=== PATIENT | female | born 1995 | race Two or more races ===

== ENCOUNTER 2022-07-10 08:49 | Outpatient (CLI) | payer OTHER, SELFPAY ==
--- NOTE | 2022-07-10 08:15 | CRLHL7_ITS ---
For Patients: As a result of the Cures Act, medical imaging exams and procedure reports are released immediately into your electronic medical record. You may view this report before your referring provider. If you have questions, please contact your health care provider. INDICATION: First trimester scan, establish dates. COMPARISON: None. TECHNIQUE: Real-time kemp-scale imaging of the pelvis was performed. FINDINGS: Sonographic imaging demonstrates a single living intrauterine gestation. The embryo demonstrates a regular cardiac rate measuring 168 beats per minute. The embryo`s crown-rump length measurement of 1.6 cm corresponds to a gestational age of 8 weeks 0 days with a sonographic due date of 02/19/2023. There is a normal-appearing yolk sac. There are no gross abnormalities noted within the embryo at this early state of development. The gestational sac has a normal appearance. There is a 0.6 x 0.5 x 0.3 cm perigestational hemorrhage. The amount of fluid within the sac appears appropriate for gestational age. The cervix is closed. An elongated cervical nabothian cyst is present measuring 11 x 7 x 26 millimeters. A smaller cervical nabothian cyst is present measuring 8 x 5 x 4 millimeters. The ovaries are of normal size. Corpus luteal cyst left ovary. There are no suspicious fluid collections noted in the cul-de-sac. IMPRESSION: Single living intrauterine with sonographic gestational age 8 weeks 0 days and a sonographic due date 02/19/2023. Small inferior subchorionic hemorrhage measuring 6 x 5 x 3 millimeters. Cervical nabothian cysts. Dictated by Maciej Ulrich MD @ 07/10/2022 11:15:28 AM (Electronically Signed)
== END 2022-07-10 08:50 | disposition home or self-care (01) ==
LOC: US 08:50
PROVIDERS: Visit Provider Registered Nurse
DX: Z34.91 Encounter for supervision of normal pregnancy, unspecified, first trimester (principal); Z3A.08 8 weeks gestation of pregnancy
CPT/HCPCS: 76817

== ENCOUNTER 2022-07-10 10:30 | Outpatient (CLI) | payer OTHER, SELFPAY ==
[2022-07-10 13:05] LABS: Amphetamine Screen Urine Negative (Negative); Barbiturate Screen Urine Negative (Negative); Benzodiazepines Screen Urine Negative (Negative); Cannabinoid Screen Urine Negative (Negative); Cocaine Screen Urine Negative (Negative); Methadone Screen Urine Negative (Negative); Methamphetamines Screen Urine Negative (Negative); Opiate Screen Urine Negative (Negative); Oxycodone Screen Urine Negative (Negative); Phencyclidine Screen Urine Negative (Negative); Tricyclic Antidepressant Urine Negative (Negative)
[2022-07-10 14:28] LABS: HIV 1/2/P24 Combo Screen* Negative (Negative)
[2022-07-10 14:37] LABS: Hepatitis C Virus Antibody* Negative (Negative)
[2022-07-10 15:48] LABS: Hepatitis B Surface Antigen* Negative (Negative)
[2022-07-10 16:14] LABS: Free T4 Free Thyroxine* 0.69 ng/dL (0.70-1.85)
[2022-07-10 17:21] LABS: Chlamydia DNA Amplified* NOT DETECTED (No Detected); GC DNA Amplified* NOT DETECTED (No Detected)
[2022-07-11 23:16] LABS: Rapid Plasma Reagin (RPR) Non Reactive (Non Reactive)
[2022-07-12 07:28] LABS: Rubella Antibody IgG 7.9 IU/mL
== END 2022-07-10 10:31 | disposition home or self-care (01) ==
PROVIDERS: Visit Provider Registered Nurse
DX: Z34.91 Encounter for supervision of normal pregnancy, unspecified, first trimester (principal); F19.91 Other psychoactive substance use, unspecified, in remission; E03.9 Hypothyroidism, unspecified; Z3A.08 8 weeks gestation of pregnancy
CPT/HCPCS: 80306; 84439; 84443; 86592; 86703; 86762; 86787; 86803; 86850; 86900; 86901; 87086; 87340; 87491; 87591

== ENCOUNTER 2022-09-04 11:53 | Outpatient (CLI) | payer OTHER, SELFPAY | END 2022-09-04 11:54 | disposition home or self-care (01) | PROVIDERS: Visit Provider Registered Nurse | DX: E03.9 Hypothyroidism, unspecified (principal) | CPT/HCPCS: 84439; 84443 ==

== ENCOUNTER 2022-10-02 09:42 | Outpatient (CLI) | payer OTHER, SELFPAY ==
--- NOTE | 2022-10-02 09:45 | CRLHL7_ITS ---
For Patients: As a result of the Century Cures Act, medical imaging exams and procedure reports are released immediately into your electronic medical record. You may view this report before your referring provider. If you have questions, please contact your health care provider. INDICATION: Evaluate anatomy. COMPARISON: 07/10/2022 TECHNIQUE: Real time kemp scale imaging of the fetus was performed as well as color Doppler analysis of the umbilical vessels. FINDINGS: Sonographic imaging demonstrates a single living intrauterine gestation. Fetus demonstrates a regular cardiac rate of 155 beats per minute. Fetus has a vertex position. The placenta lies posteriorly without evidence of placenta previa. The edge of the placenta is located 3.1 cm from the internal cervical os. Amniotic fluid volume appears normal. Single deepest vertical pocket: 3.8 cm. The cervix is closed and measures 4.8 cm in length. The composite ultrasound gestational age is calculated at 20 weeks 3 days with an estimated sonographic due date of 02/16/2023. The estimated weight is 358 grams which lies at the 49th %. The following biometric measurements were obtained: Biparietal diameter: 4.6 cm/20 weeks 0 days 33rd% Head circumference: 17.9 cm/20 weeks 2 days 37th% Abdominal circumference: 15.0 cm/20 weeks 2 days 37th% Femur length: 3.5 cm/20 weeks 6 days 59th% The HC/AC ratio measures: 1.19 range (1.07-1.25) On anatomic survey, there is a normal appearance of the cerebral ventricles, cavum septi pellucidi, cisterna magna and cerebellum. The nose, lips, and facial profile appear normal. The cervical, thoracic and lumbar spine are well visualized and appear normal. There is a normal four-chamber heart view and the left and right ventricular outflow tracts appear normal. The diaphragm and stomach appear normal. The kidneys and bladder also appear normal. There is a normal three-vessel cord and eccentric cord insertion site. The four extremities appear normal. IMPRESSION: Concordance of clinical and sonographic dating. No intrinsic abnormalities noted on anatomic survey. Dictated by Maciej Ulrich MD @ 10/02/2022 11:06:16 AM (Electronically Signed)
== END 2022-10-02 09:43 | disposition home or self-care (01) ==
LOC: US 09:43
PROVIDERS: Visit Provider Registered Nurse
DX: Z34.92 Encounter for supervision of normal pregnancy, unspecified, second trimester (principal); Z3A.20 20 weeks gestation of pregnancy
CPT/HCPCS: 76805

== ENCOUNTER 2022-10-02 11:03 | Outpatient (CLI) | payer OTHER, SELFPAY | END 2022-10-02 11:04 | disposition home or self-care (01) | LOC: NFLDREF 11:04 | PROVIDERS: Visit Provider Obstetrics & Gynecology | DX: E03.9 Hypothyroidism, unspecified (principal) | CPT/HCPCS: 84443 ==

== ENCOUNTER 2022-12-24 15:45 | Outpatient (CLI) | payer OTHER, SELFPAY | END 2022-12-24 15:46 | disposition home or self-care (01) | PROVIDERS: Visit Provider Obstetrics & Gynecology | DX: Z34.93 Encounter for supervision of normal pregnancy, unspecified, third trimester (principal); E03.9 Hypothyroidism, unspecified | CPT/HCPCS: 84439; 84443 ==

== ENCOUNTER 2023-01-21 14:23 | Outpatient (CLI) | payer OTHER, SELFPAY | END 2023-01-21 14:24 | disposition home or self-care (01) | LOC: NFLDREF 01-23 07:37 | PROVIDERS: Visit Provider Obstetrics & Gynecology | DX: Z36.85 Encounter for antenatal screening for Streptococcus B (principal); Z3A.36 36 weeks gestation of pregnancy | CPT/HCPCS: 87081; 87653 ==

== ENCOUNTER 2023-01-24 12:45 | Outpatient (CLI) | payer OTHER, SELFPAY ==
[2023-01-24 13:13] VITALS: BP 121/59; PULSE 98; PULSE 99; TEMP 37.1; O2SAT 96
--- NOTE | 2023-01-24 14:15 | PC.OBNST ---
NST Note NST Note Start: 01/24/23 12:55 Freq: ONCE Status: Active Protocol: Document 01/24/23 14:02 AAP (Rec: 01/24/23 14:15 AAP [id number]) NST Note 2 Para (# of births) 0 EDC 02/16/23 Gestational Age In Weeks & Days 36 Weeks & 5 Days Patient Presented with Complaint(s) of Decreased movement,Other Other Complaints Edema to bilateral feet and hands Reactive Yes Appropriate for Gestational Age Yes RN Regine Stein RN Date 01/24/23 Reactive Yes Appropriate for Gestational Age Yes RN Dr. Gigi MD Date 01/24/23 OB NST charge Yes Complete NST Note via Write Note Yes The provider's electronic signature indicates the NST is reactive/appropriate for gestational age. *Note to provider: If an addendum is required, open the patient's chart and click on the note under the Nurse/Allied Health tab.
== END 2023-01-24 14:02 | disposition home or self-care (01) ==
LOC: OB OUT 12:46 → OB 12:46
PROVIDERS: Visit Provider Obstetrics & Gynecology
DX: O36.8130 Decreased fetal movements, third trimester, not applicable or unspecified (principal); Z3A.36 36 weeks gestation of pregnancy
CPT/HCPCS: 59025; 99213

== ENCOUNTER 2023-01-29 15:52 | Outpatient (CLI) | payer OTHER, SELFPAY ==
--- NOTE | 2023-01-29 16:00 | CRLHL7_ITS ---
For Patients: As a result of the Century Cures Act, medical imaging exams and procedure reports are released immediately into your electronic medical record. You may view this report before your referring provider. If you have questions, please contact your health care provider. INDICATION: Measuring large for dates. COMPARISON: OB ultrasound 10/02/2022. TECHNIQUE: Ultrasound OB pelvis with real time kemp scale imaging and color Doppler analysis. FINDINGS: Sonographic imaging demonstrates a single living intrauterine gestation. The fetus has a regular cardiac rate of 127 beats per minute. The fetus has a cephalic orientation. The placenta lies posteriorly. Single deepest pocket measures 4.8 cm. The composite ultrasound gestational age is calculated at 37 weeks 4 days with an estimated sonographic due date of 02/15/2023. The estimated weight is 3365 grams which lies at the 73rd percentile. The following biometric measurements were obtained: Biparietal diameter: 9.11 cm (37 weeks 0 days) (56th percentile) Head circumference: 32.49 cm (36 weeks 6 days) (15th percentile) Abdominal circumference: 34.54 cm (38 weeks 3 days) (88th percentile) Femur length: 7.45 cm (38 weeks 1 day) (68th percentile) The HC/AC ratio measures: 0.94 (range 0.91-1.05) IMPRESSION: 1. Single living intrauterine gestation in cephalic position with heart rate 127 beats per minute. 2. Ultrasound gestational age 37 weeks 4 days with sonographic due date 02/15/2023. This is concordant with the clinical gestational age of 37 weeks 3 days. 3. Estimated weight lies at the 73rd percentile. Dictated by Rebecca Harris MD @ 01/29/2023 11:06:02 PM (Electronically Signed)
== END 2023-01-29 15:53 | disposition home or self-care (01) ==
LOC: US 15:53
PROVIDERS: Visit Provider Obstetrics & Gynecology
DX: O36.63X0 Maternal care for excessive fetal growth, third trimester, not applicable or unspecified (principal); Z3A.37 37 weeks gestation of pregnancy
CPT/HCPCS: 76816

== ENCOUNTER 2023-01-30 21:57 | Inpatient (IN) | payer OTHER, SELFPAY ==
[2023-01-30] VITALS (11 sets, daily range): BP systolic 105–142; BP diastolic 53–80; PULSE 72–117; O2SAT 97–100; BMI 38.8
[2023-01-30] MEDS: LACTATED RINGERS 1000 ML 1,000 ML 1200 ML IV (22:50)
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
[2023-01-30] MEDS: fentaNYL 100 MCG/2 ML inj 20 MCG INTRATHECA (23:23)
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
[2023-01-31] VITALS (13 sets, daily range): BP systolic 110–152; BP diastolic 57–81; PULSE 83–113; RESP 1–18; TEMP 36.8–37.1; O2SAT 96–98
[2023-01-31] MEDS: miSOPROStoL 800 MCG/4 TABLET PR (02:04)
[2023-01-31] MEDS: METHYLERGONOVINE MALEATE 0.2 MG/ML INJ IM (02:06)
[2023-01-31] MEDS: TRANEXAMIC ACID 100 MG/ML INJ 1000 MG IV (02:07)
--- NOTE | 2023-01-31 02:37 | W.PM.OBVAGDE ---
OB Procedure Vag Delivery Mother Details Mother Details: The patient is a 28 year-old, 2, Para 0, admitted on 01/30/23 at 37 4/7 weeks gestation, after SROM and in labor. : 2 Para: 1 Weeks Gestation: 37.5 Admission Date: 01/30/23 Additional Details Amniotic Membrane Status: SROM Amniotic Membrane Rupture Date: 01/30/23 Amniotic Membrane Rupture Time: 20:30 Amniotic Membrane Fluid Description: Clear Analgesia/Anesthesia Type: Intrathecal Waterbirth: No Pitcoin: No Labor Onset: 21:00 Complete: 23:30 Pushin:46 Heart: heart tones during second stage were category 2, variable decelerations with pushing with good recovery and moderate variability between contractions. Delivery Details Delivery Date: 01/31/23 Delivery Time: 01:56 Route of delivery: Infant Gender: Male Viability: Alive; Heart Rate Present Position at Delivery: OA Delivery Details: Delivered over intact perineum via spontaneous vaginal delivery. Head delivered and with traction there was slow delivery of anterior shoulder January position obtained and baby delivered immediately after. No shoulder dystocia. Infant was placed on maternal abdomen. Nose and mouth were bulb suctioned. Baby was seen stunned with poor tone so recommendation was given to clamp and cut the cord and take baby to the warmer, after about 30 seconds of delayed cord clamping. After stimulation baby responded well and was brought back to mom soon.? Infant weight pending. 1 Minute Interval Total Score: 4 5 Minute Interval Total Score: 8 Additional Details Shoulder Dystocia: No Placenta Delivery Time: 02:02 Placental Delivery Description: Spontaneous Delivery repair: Vicryl Procedure Done: Global Blood Loss: 550 (Uterine atony, managed with IV Oxytocin 30 units, 800mcg of rectal misoprostol and 1 dose of Methergine. ) Laceration: Perineal - 3rd Degree (3a, very superficial disruption of the external anal sphincter, edges identified and these were approximated with Vicryl 3-0 in an interrupted manner, great sphincter tone noted, afterwards the repaire continued as a second degree repair utilizing Vicryl 3-0,one dose of Ancef given.) Episiotomy Description: None Blood Loss Measurement Type: QBL Bakri Used: No Sponge/Need Count Correct: Yes Cord Vessel Description: 3 Vessels Event Summary Status: Mother and were stable after delivery. Disposition: floor
[2023-01-31] MEDS: OXYTOCIN 30 unit/500 ML in NS 30 UNIT/500 ML BAG 300 UNIT IVPB (02:44)
[2023-01-31] MEDS: LIDOCAINE 1 % PF 30 ML INJECTION (02:45)
[2023-01-31] MEDS: CEFAZOLIN 2 GM INJ IVP (03:14)
[2023-01-31] MEDS: LACTATED RINGERS 1000 ML 1,000 ML 300 ML IV (08:01)
[2023-01-31] MEDS: DOCUSATE SODIUM 100 MG CAPSULE PO (08:39)
[2023-01-31] MEDS: ACETAMINOPHEN 500 MG TABLET 1000 MG PO (08:39)
[2023-01-31] MEDS: MEASLES,MUMPS,RUBELLA VACC/PF 1 DOSE INJ 1 EACH SUBCUT (11:30)
[2023-01-31] MEDS: IBUPROFEN 600 MG TABLET PO ×2 (11:39→19:38)
[2023-02-01] VITALS: BP 122/82; PULSE 84; RESP 16; TEMP 36.6; O2SAT 95
[2023-02-01] MEDS: ACETAMINOPHEN 500 MG TABLET 1000 MG PO (00:18)
[2023-02-01] MEDS: IBUPROFEN 600 MG TABLET PO (04:07)
[2023-02-01 07:04] LABS: Hemoglobin* 10.4 gm/dL (12.0-16.0)
[2023-02-01] MEDS: DOCUSATE SODIUM 100 MG CAPSULE PO (08:17)
[2023-02-01 08:30] VITALS: BP 117/79; PULSE 76; RESP 16; TEMP 36.7; O2SAT 98
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
== END 2023-02-01 12:13 | disposition home or self-care (01) | DRG 560 ==
LOC: OB OUT 21:57 → OB 21:57
PROVIDERS: Admitting Provider Obstetrics & Gynecology; Visit Provider Obstetrics & Gynecology
DX: O42.02 Full-term premature rupture of membranes, onset of labor within 24 hours of rupture (principal); O70.21 Third degree perineal laceration during delivery, IIIa; O62.2 Other uterine inertia; O90.81 Anemia of the puerperium; D62 Acute posthemorrhagic anemia; O99.334 Smoking (tobacco) complicating childbirth; F17.210 Nicotine dependence, cigarettes, uncomplicated; O99.344 Other mental disorders complicating childbirth; F32.A Depression, unspecified; F41.9 Anxiety disorder, unspecified; Z62.810 Personal history of physical and sexual abuse in childhood; F98.8 Other specified behavioral and emotional disorders with onset usually occurring in childhood and adolescence; F10.21 Alcohol dependence, in remission; F11.21 Opioid dependence, in remission; F15.11 Other stimulant abuse, in remission; F12.11 Cannabis abuse, in remission; Z3A.37 37 weeks gestation of pregnancy; Z37.0 Single live birth
CPT/HCPCS: 01967; 36415; 85018; 85025; 86850; 86900; 86901; A9270; J0690; J2001; J2210; J2371; J3010; J7120

== ENCOUNTER 2023-03-14 10:56 | Outpatient (CLI) | payer OTHER, SELFPAY | END 2023-03-14 10:57 | disposition home or self-care (01) | LOC: NFLDREF 10:56 | PROVIDERS: Visit Provider Registered Nurse | DX: Z39.2 Encounter for routine postpartum follow-up (principal); E03.9 Hypothyroidism, unspecified | CPT/HCPCS: 84439; 84443 ==

== ENCOUNTER 2024-05-28 11:26 | Outpatient (CLI) | payer MEDICAID, SELFPAY ==
[2024-05-29 14:25] LABS: Strep B DNA Probe POSITIVE (Negative)
[2024-05-29 14:44] LABS: Strep B Susceptibility Needed? No
== END 2024-05-28 11:27 | disposition home or self-care (01) ==
PROVIDERS: Visit Provider Obstetrics & Gynecology
DX: Z34.93 Encounter for supervision of normal pregnancy, unspecified, third trimester (principal); Z3A.36 36 weeks gestation of pregnancy
CPT/HCPCS: 87081; 87653

== ENCOUNTER 2024-06-03 10:59 | Outpatient (CLI) | payer MEDICAID, SELFPAY ==
--- NOTE | 2024-06-03 11:15 | CRLHL7_ITS ---
For Patients: As a result of the Century Cures Act, medical imaging exams and procedure reports are released immediately into your electronic medical record. You may view this report before your referring provider. If you have questions, please contact your health care provider. HISTORY: Size greater than dates COMPARISON: None available of this gestation. TECHNIQUE: Ultrasound examination of the is performed with transabdominal technique. FINDINGS: A single intrauterine gestation is seen in cephalic presentation with regular cardiac activity at 141 beats per minute. The placenta is anterior and is free of the cervical os. The placental grade is 2 and the amniotic fluid volume is normal. Single deepest vertical pocket: Normal at 5.8 cm. BPD: 9.0 cm 36 weeks 4 days HC: 33.1 cm 37 weeks 4 days AC: 34.5 cm 38 weeks 3 days. 92nd percentile FL: 6.7 cm 34 weeks 5 days The estimated age by ultrasound is 36 weeks 6 days, with an estimated date of delivery of 06/25/2024. This correlates well with the clinical age of 37 weeks 0 days. The FL/AC ratio of 19.5 is below bottom normal 20.0. The HC/AC ratio is normal. The estimated weight of 3200 grams is at the 64th percentile based on the clinical dates. IMPRESSION: 1. Single intrauterine gestation in cephalic presentation with regular cardiac activity. 2. Estimated gestational age is 36 weeks 4 days. 3. The estimated weight of 3200 grams is at the 64th percentile based on the clinical dates. 4. Abdominal circumference at the 92nd percentile Dictated by Aung Almonte MD @ 06/04/2024 9:23:25 PM (Electronically Signed)
== END 2024-06-03 11:00 | disposition home or self-care (01) ==
LOC: US 11:00
PROVIDERS: Visit Provider Obstetrics & Gynecology
DX: O36.63X0 Maternal care for excessive fetal growth, third trimester, not applicable or unspecified (principal); Z3A.37 37 weeks gestation of pregnancy
CPT/HCPCS: 76816

== ENCOUNTER 2024-06-05 19:40 | Inpatient (IN) | payer MEDICAID, SELFPAY ==
[2024-06-05] VITALS (7 sets, daily range): BP systolic 121–146; BP diastolic 60–78; PULSE 92–107; TEMP 36.6–36.7; O2SAT 98; BMI 42.3
[2024-06-05 20:04] LABS: Basophils Absolute Auto 0.01 K/uL (0.00-0.30); Basophils Percent Auto 0.1 % (0.0-3.0); Eosinophils Percent Auto 1.1 % (0.0-7.0); Hematocrit 35.4 % (33.0-51.0); Hemoglobin* 11.7 gm/dL (12.0-16.0); Immature Granulocytes Abs Auto 0.05 K/uL (0.00-0.30); Immature Granulocytes Pct Auto 0.5 %; Lymphocytes Percent Auto 18.6 % (20-44); Mean Corpuscular HGB Conc 33 gm/dL (32-36); Mean Corpuscular Hemoglobin 29 pg (26-34); Mean Corpuscular Volume 86 fL (80-100); Neutrophils Absolute Auto 6.33 K/uL (1.7-7.0); Neutrophils Percent Auto 68.7 % (42.0-72.0); Platelet Count* 203 K/uL (140-440); RDW Coefficient of Variation % 14.6 % (11.5-15.5); White Blood Count* 9.21 K/uL (4.50-11.00)
[2024-06-05 20:10] LABS: Slide Review Reflex No
[2024-06-05] MEDS: AMPICILLIN 2 GM in 0.9 % SODIUM CHLORIDE Mini-bag 100 ML IVPB (20:15)
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
[2024-06-05] MEDS: LACTATED RINGERS 1000 ML 1,000 ML 125 ML IV (20:50)
[2024-06-06] VITALS (70 sets, daily range): BP systolic 71–176; BP diastolic 34–92; PULSE 62–114; RESP 14–18; TEMP 36.6–37.1; O2SAT 97–99
[2024-06-06] MEDS: AMPICILLIN 1 GM in 0.9 % SODIUM CHLORIDE Mini-bag 100 ML IVPB ×2 (00:15→04:16)
[2024-06-06] MEDS: LIDOCAINE 2% (PF) 5 ML VIAL EPIDURAL (00:37)
[2024-06-06] MEDS: ROPIVACAINE 0.2 % PF 10 ML INJ 20 MG EPIDURAL (00:37)
[2024-06-06] MEDS: ROPIVACAINE 0.2% 100 ml 100 ML 12 MG EPIDURAL (00:37)
--- NOTE | 2024-06-06 00:54 | PM.ANBPRC ---
PFSH PFSH Medical History Substance abuse ?F19.10 - Other psychoactive substance abuse, uncomplicated (ICD-10) Alcohol abuse ?F10.10 - Alcohol abuse, uncomplicated (ICD-10) Normal spontaneous vaginal delivery ?O80 - Encounter for full-term uncomplicated delivery (ICD-10) Anemia associated with acute blood loss ?D62 - Acute posthemorrhagic anemia (ICD-10) Perineal laceration with delivery, third degree ?O70.20 - Third degree perineal laceration during delivery, unspecified (ICD-10) SROM (spontaneous rupture of membranes) Constipation ?K59.00 - Constipation, unspecified (ICD-10) History of abuse Surgical History History of tonsillectomy ?Z90.89 - Acquired absence of other organs (ICD-10) Social History What is your current living situation?: I presently have a place to live Problems where you live: no known problems In the past 12 months, utilities in danger of being shut off: no In the past 12 mos, have been you worried that your food would run out before you had money to buy more?: never true In the past 12 mos, the food you bought just didn't last and you didn't have money to buy more?: never true Smoking Status: Former smoker How often does anyone, including family, friends and others, physically hurt you: never How often does anyone, including family, friends and others, insult or talk down to you: never How often does anyone, including family, friends and others, threaten you with harm: never How often does anyone, including family, friends and others, scream or curse at you: never Meds Home Medications and Allergies Home Medications ?Medication ?Instructions ?Recorded ?Confirmed ?Type prenat.vits,catarino,[id number] 1 tab PO QDAY 07/10/22 06/05/24 History acetaminophen 500 mg tablet 1,000 mg PO Q6H PRN 09/04/22 06/05/24 History (Tylenol Extra Strength) levothyroxine 112 mcg tablet 112 mcg PO DAILY 05/07/24 06/05/24 History famotidine 20 mg tablet (Pepcid) 20 mg PO QDAY 05/14/24 06/05/24 History Allergies Allergy/AdvReac Type Severity Reaction Status Date / Time No Known Drug Allergies Allergy Verified 06/05/24 23:34 Results Labs Labs: Laboratory Results - last 24 hr 06/05/24 19:54 WBC 9.21 RBC 4.10 Hgb 11.7 L Hct 35.4 MCV 86 MCH 29 MCHC 33 RDW Coeff of Natasha 14.6 Plt Count 203 Neut % (Auto) 68.7 Lymph % (Auto) 18.[address] % (Auto) 11.0 Eos % (Auto) 1.1 Baso % (Auto) 0.1 Neut # (Auto) 6.33 Lymph # (Auto) 1.70 [place] # (Auto) 1.00 H Eos # (Auto) 0.10 Baso # (Auto) 0.01 Abs Immat Gran (auto) 0.05 Imm/Tot Granulo (auto) 0.5 Blood Type A Positive Antibody Screen NEGATIVE Vital Signs Vital Signs: Last Vital Signs Temp 97.9 F 06/05/24 23:00 Pulse 96 06/06/24 00:52 BP 111/53 L 06/06/24 00:52 Pulse Ox 99 06/06/24 00:51 Weight: 111.811 kg Height: 162.56 cm Anesthesia Procedures Epidural Insertion Patient Location: OB Start Time: 00:20 Stop Time: 00:54 Start Date: 06/06/24 Stop Date: 06/06/24 Reason for Block: procedure for pain Patient Position: sitting Performed By: Joe Negrete Preanesthetic Checklist: IV checked, risks and benefits discussed, surgical consent, monitors and equipment checked, pre-op evaluation, timeout performed and anesthesia consent Prep: chlorhexidine gluconate Monitoring: blood pressure monitoring, continuous pulse oximetry and heart rate Approach: midline Vertebral Space: lumbar (1-5) Epidural Technique: FLAQUITA air Needle Type: Tuohy needle Injection Technique: continuous catheter Needle gauge: 17 Needle Length (cm): 10 cm Needle Insertion Depth (cm): 7 Catheter Gauge: 19 Catheter Type: multi-orifice Catheter at skin depth (cm): 13 Test Dose Result: negative and lidocaine 1.5% with epinephrine 1 to 200,000
[2024-06-06] MEDS: PHENYLEPHRINE 100 MCG/ML SYRINGE IVP ×2 (01:25→01:42)
[2024-06-06] MEDS: LACTATED RINGERS 1000 ML 1,000 ML 125 ML IV (02:20)
[2024-06-06] MEDS: ePHEDrine sulfate 5 MG/ML inj 10 MG IVP (02:43)
[2024-06-06] MEDS: OXYTOCIN 30 unit/500 ML in NS 30 UNIT/500 ML BAG 300 UNIT IVPB (05:56)
[2024-06-06] MEDS: LIDOCAINE 1 % PF 30 ML INJECTION (06:04)
[2024-06-06] MEDS: IBUPROFEN 600 MG TABLET PO ×2 (06:21→19:46)
--- NOTE | 2024-06-06 07:11 | W.PM.OBVAGDE ---
OB Procedure Vag Delivery Mother Details Mother Details: The patient is a 29 year-old, 3, Para 2, admitted on 06/05/24 at 37.3 Days gestation in labor for delivery. Patient continued to progress, after epidural placement contractions started to space out and patient intesrted in labor augmentation. Patient had labor augmentation with IV Oxytocin and AROM. : 3 Para: 2 Weeks Gestation: 37.3 Admission Date: 06/05/24 Additional Details Amniotic Membrane Status: AROM Amniotic Membrane Rupture Date: 06/06/24 Amniotic Membrane Rupture Time: 01:25 Amniotic Membrane Fluid Description: Clear Analgesia/Anesthesia Type: Epidural Waterbirth: No Pitcoin: Yes Intrapartal Events: Labor Augmentation Delivery augmentation: rupture of membranes and pitocin Labor Onset: 19:00 Complete: 05:33 Pushin:35 Heart: heart tones during second stage were category 2, deep variable decelerations with uterine contractions, but recovered to a normal baseline and great maternal pushing efforts resulted in a speedy vaginal delivery. Delivery Details Delivery Date: 06/06/24 Delivery Time: 05:55 Route of delivery: Gender: Male Infant Viability: Alive; Heart Rate Present Position at Delivery: OA Delivery Details: Delivered over intact perineum via spontaneous vaginal delivery. was placed on maternal abdomen.? Cord was clamped and cut after a 30-60 second delay. Nose and mouth were bulb suctioned.? weight pending. 1 Minute Interval Total Score: 8 5 Minute Interval Total Score: 8 Additional Details Shoulder Dystocia: No Placenta Delivery Time: 05:59 Placental Delivery Description: Spontaneous Delivery repair: Vicryl Procedure Done: Global Blood Loss: 200 Laceration: Perineal - 2nd Degree Episiotomy Description: None Blood Loss Measurement Type: QBL Bakri Used: No Sponge/Need Count Correct: Yes Cord Vessel Description: 3 Vessels, Nuchal Cord and Reduced Event Summary Status: Mother and infant were stable after delivery. Disposition: floor
[2024-06-06] MEDS: ACETAMINOPHEN 500 MG TABLET 1000 MG PO (11:27)
[2024-06-07] MEDS: IBUPROFEN 600 MG TABLET PO (03:40)
[2024-06-07 03:51] VITALS: BP 114/77; PULSE 84; RESP 18; TEMP 36.5; O2SAT 98
[2024-06-07 06:57] LABS: Hemoglobin* 11.8 gm/dL (12.0-16.0)
--- NOTE | 2024-06-07 08:14 | P.DS_ITS ---
DS: Providers Provider Date Seen: 06/07/24 Date of admission: 06/05/24 19:40 Primary care physician: Not a Local Provider Admitting Clinician: Radha Capps MD Attending Physician on discharge: Altaf STONE APRN Date of Discharge: 06/07/24 DS: Diagnosis Discharge Diagnosis (1) care and examination of lactating mother: Status: Acute (2) Hypothyroidism: Status: Acute (3) ADD (attention deficit disorder): Status: Acute Problem details: Stopped Adderall with positive UPT Exam Narrative: Exam Narrative: GENERAL APPEARANCE:? normal affect, alert, no distress MOOD:? appropriate CHEST:? clear to auscultation HEART:? regular rate and rhythm ABDOMEN:? soft, non-tender the uterine fundus is At Umbilicus, Midline and is appropriate for the stage of recovery. PERINEUM:? mild edema of the perineum, there is a Perineal Laceration,?with minimal edema and no erythema EXTREMITIES:? normal and no edema Const: Vital Signs, click to edit/add: Vital Signs - 24 hr 06/06/24 08:20 06/06/24 13:39 06/06/24 16:04 Temperature 97.8 F 97.8 F Pulse Rate 76 Pulse Rate [Pulse Oximeter] 97 Respiratory Rate 14 18 Blood Pressure 112/56 L Blood Pressure [Le ft Arm] 126/75 107/68 Pulse Oximetry 97 97 Oxygen Delivery Me thod Room Air Room Air 06/06/24 20:43 06/06/24 23:11 06/07/24 03:51 Temperature 98.7 F 97.9 F 97.7 F Pulse Rate Pulse Rate [Pulse Oximeter] 84 98 84 Respiratory Rate 17 18 Blood Pressure Blood Pressure [Le ft Arm] 109/71 131/81 114/77 Pulse Oximetry 97 97 98 Oxygen Delivery Me thod Room Air Room Air Room Air OB - DS: Summary Hospital Course Hospital Course: Discharge Subjective? Rodríguez is a 29 y.o. G 3 P 2011 who was admitted to [facility] for active labor.? She had a NVD that was uncomplicated. The patient feels well.? The pain is well controlled with current medications.? She has no new complaints.? She is breast feeding and reports things are not going well. She is planning to pump and bottle feed. Nursing will help her secure her pump. the patient has done well.? Vitals have been stable.? She has remained afebrile.? Has a good appetite, is tolerating a general diet.? She is voiding without difficulty.? She is passing gas and has not had a bowel movement.? She is ambulating and denies any dizziness.? Has small amount of rubra lochia. She is planning condoms/abstinence for prevention.? ?? Problems: none? ?? plan:? Discharge home with baby.? Follow up in 2 weeks and 6 weeks.? RX sent for 100 mcg levothyroxine, to decrease from 112mcg. , may see if needed? Hgb 11.8. ? Labs WNL or stable with trending? Peripartum Data Infant delivery method: Vaginal Laceration description: Perineal - 2nd Degree Episiotomy description: None complications: none Infant Gender: Male Discharge Plan: Home Status at Discharge Overall status at discharge: patient is progressing back to baseline Time Spent with Patient Time attestation: Total time spent providing and/or coordinating discharge services: Time spent: Less than 30 minutes Discharge Plan Discharge Disposition: Home, Self-Care Date of Admission: 06/05/24 19:40 Attending Provider on Discharge: Lauar Lechuga Primary Care Provider: Provider,Not a Local Condition: Stable Anticipated Discharge Date/Time: 06/07/24 12:00 Discharge Medications: New acetaminophen 500 mg Tablet 1,000 mg PO Q6H PRNQty: 60 0RF docusate sodium 100 mg Capsule 100 mg PO DAILY Qty: 60 0RF ibuprofen 600 mg Tablet 600 mg PO Q6H PRNQty: 60 0RF levothyroxine 100 mcg capsule 100 mcg PO DAILY Qty: 90 2RF Continued prenat.vits,catarino,[id number] Tablet 1 tab PO QDAY Discontinued levothyroxine 112 mcg tablet 112 mcg PO DAILY acetaminophen [Tylenol Extra Strength] 500 mg tablet 1,000 mg PO Q6H PRN famotidine [Pepcid] 20 mg tablet 20 mg PO QDAY Discharge Orders: Discharge Order (Routine); Ordered 06/07/24 Ordered By: Laura Lechuga Patient Education: OB Care, OB Vaginal/Breast Feeding Additional Instructions: Patient verbalized understanding of reviewed discharge instructions.Discharge instructions were reviewed with the patient including signs and symptoms of infection and home going medications Nothing vaginally for 6 weeks: no tampons or intercourse Do not drive while taking narcotic pain medication(s) Off Work or School for 6 weeks Symptoms to report to doctor: * Bleeding that saturates more than one pad per hour * Passing clots larger than the size of a golf ball * Pain not relieved by prescribed medication * Fever above 100.4 degrees Fahrenheit * A foul vaginal odor * Difficulty in emotions, mood, and functions * Thoughts of hurting yourself and/or * Painful, reddened area in your breast * Any drainage, redness, or tenderness in your IV/epidural site * Severe headache that doesn't improve after taking medications * Changes in vision, including temporary loss of vision, blurred vision, and/or light sensitivity * Upper abdominal pain (usually under ribs on the right side) * Decrease in urination or painful, frequent urinating * Chest pain * Shortness of breath * Tenderness or pain with redness and/swelling in the calf(s) of your leg 2-week visit: discuss feeding concerns, review control options and screen for anxiety/depression. 6-week visit for an annual exam. consultation services are available to all mothers and babies for the first year after delivery.? To make an appointment, please call [phone]. For pain control of perineum, breast and pelvic pain, take 600 mg Ibuprofen every 6 hours as needed by mouth or 1000 mg acetaminophen (Tylenol) every 6 hours by mouth as needed. You can alternate these so you are taking something every 3 hours as needed. A heating pad can also be used for your abdomen or breasts. You may also take docusate sodium up to twice daily to soften your stools and help to prevent constipation. You may wean off of it when your stools return to normal.? Activity Level: Activity as Tolerated and No strenuous activity Discharge Diet: Regular Follow Up Appointments: [facility] [Provider Group] Forms: MyHealth Info Instructions
[2024-06-07 08:20] VITALS: BP 109/71; PULSE 86; RESP 16; TEMP 36.3; O2SAT 98
[2024-06-07] MEDS: DOCUSATE SODIUM 100 MG CAPSULE PO (08:29)
--- NOTE | 2024-06-07 11:08 | PM.ANPOST ---
Post Anesthesia Note Post Anesthesia Note Patient seen: Inpatient Respiratory Status: adequate Cardiovascular Status: adequate Mental Status: baseline Pain: adequate Temp: baseline Anesthetic awareness: N/A Complications: none Follow care: none
[2024-06-09 02:44] LABS: Rapid Plasma Reagin (RPR) Non Reactive (Non Reactive)
== END 2024-06-07 11:20 | disposition home or self-care (01) | DRG 807 ==
LOC: OB OUT 19:40 → OB 19:41
PROVIDERS: Admitting Provider Obstetrics & Gynecology; Visit Provider Obstetrics & Gynecology
DX: O99.824 Streptococcus B carrier state complicating childbirth (principal); Z37.0 Single live birth; O76 Abnormality in fetal heart rate and rhythm complicating labor and delivery; O70.1 Second degree perineal laceration during delivery; O99.284 Endocrine, nutritional and metabolic diseases complicating childbirth; E03.9 Hypothyroidism, unspecified; O99.344 Other mental disorders complicating childbirth; F98.8 Other specified behavioral and emotional disorders with onset usually occurring in childhood and adolescence; O99.334 Smoking (tobacco) complicating childbirth; F17.290 Nicotine dependence, other tobacco product, uncomplicated; F10.11 Alcohol abuse, in remission; Z91.410 Personal history of adult physical and sexual abuse; Z3A.37 37 weeks gestation of pregnancy
CPT/HCPCS: 01967; 36415; 85018; 85025; 86592; 86850; 86900; 86901; A9270; J0290; J2003; J2371; J2795; J7120

== ENCOUNTER 2024-06-24 09:41 | Outpatient (CLI) | payer MEDICAID, SELFPAY | END 2024-06-24 09:42 | disposition home or self-care (01) | PROVIDERS: Visit Provider Registered Nurse | DX: E03.9 Hypothyroidism, unspecified (principal); Z39.2 Encounter for routine postpartum follow-up | CPT/HCPCS: 80048; 84443 ==

== ENCOUNTER 2024-07-07 15:16 | Outpatient (CLI) | payer MEDICAID, SELFPAY ==
[2024-07-07 18:27] LABS: Bacterial Vaginosis* Negative (Negative); Candida glab/krus NOT DETECTED (No Detected); Candida species NOT DETECTED (No Detected); Trichomonas vaginalis NOT DETECTED (No Detected)
== END 2024-07-07 15:17 | disposition home or self-care (01) ==
LOC: NFLDREF 15:16
PROVIDERS: PCP Registered Nurse; Visit Provider Registered Nurse
DX: N89.8 Other specified noninflammatory disorders of vagina (principal)
CPT/HCPCS: 81513; 87481; 87661